=== PATIENT | female | born 1970 | race African-American/Black ===

== ENCOUNTER 2018-11-30 20:47 | Emergency (ER) | payer OTHER ==
[~2018-11-30] VITALS: Ht 162.6 cm; Wt 70.3 kg
[2018-11-30 20:53] VITALS: BP 106/64
--- NOTE | 2018-11-30 20:53 | NUR ---
TO BED # 6 AMBULATORY, REPORT GIVEN TO CASANDRA SIERRA
--- NOTE | 2018-11-30 21:00 | NUR ---
PATIENT PRESENTS ER WITH PAIN TO THE LEFT EAR X 2 DAYS. PT STATED SHE HAS SOME HEARING LOSS. AND FEELS PRESSURE. PATIENT STATES PAIN OF 4/10 AT THIS TIME; VSS; PATIENT POSITIONED FOR COMFORT; HOB ELEVATED; BEDRAILS UP X2; BED DOWN. ER MD MADE AWARE OF PT STATUS.
[2018-11-30 22:04] VITALS: BP 106/64
--- NOTE | 2018-11-30 22:04 | NUR ---
Patient discharged with v/s stable. Written and verbal after care instructions given and explained. Patient alert, oriented and verbalized understanding of instructions. Ambulatory with steady gait. All questions addressed prior to discharge. ID band removed. Patient advised to follow up with PMD. Rx of AUGMENTIN AND DEBROX WAS given. Patient educated on indication of medication including possible reaction and side effects. Opportunity to ask questions provided and answered.
== END 2018-11-30 22:04 | disposition home or self-care (01) ==
LOC: MED 20:47
DX: H61.22 Impacted cerumen, left ear (principal)
CPT/HCPCS: 99283

== ENCOUNTER 2019-12-13 11:38 | Emergency (ER) | payer OTHER ==
[~2019-12-13] VITALS: Ht 162.6 cm; Wt 78.5 kg
--- NOTE | 2019-12-13 11:42 | NUR ---
PT TO ER BED 6
[2019-12-13 11:45] VITALS: BP 120/66
--- NOTE | 2019-12-13 11:51 | NUR ---
c/o possible ring work infection---noted scratch right side of neck and fluid filled vesicle to left unlar notch--- pt belives those to be ring work infection---states , she was sent home from work
[2019-12-13 12:14] VITALS: BP 120/66
--- NOTE | 2019-12-13 12:15 | NUR ---
Patient discharged with v/s stable. Written and verbal after care instructions given and explained. Patient verbalized understanding. Ambulatory with steady gait. All questions addressed prior to discharge. Advised to follow up with PMD.
== END 2019-12-13 12:15 | disposition home or self-care (01) ==
LOC: MED 11:38
DX: R21 Rash and other nonspecific skin eruption (principal); Z98.890 Other specified postprocedural states
CPT/HCPCS: 99281

== ENCOUNTER 2021-10-06 08:14 | Emergency (ER) | payer OTHER ==
[~2021-10-06] VITALS: Ht 162.6 cm; Wt 80.3 kg
[2021-10-06 08:15] VITALS: BP 135/95
--- NOTE | 2021-10-06 08:22 | NUR ---
PT AMBULATED TO BED 9
--- NOTE | 2021-10-06 08:25 | NUR ---
Dr. Carlin is evaluating pt at bedside
--- NOTE | 2021-10-06 08:28 | NUR ---
51 y/o F BIB self from home c/o cough, N/V/D and headache x 1 day. Patient A&Ox4, ambulatory, states waking up to symptoms yesteday. States productive cough and 1 episode of vomiting and diarrhea. Denies sick household members. Denies fever, chills, chest pain, SOB. States Motrin and Sudafed yesterday with temporary relief. Bed locked in lowest position, side rails x 1. PMH: DENIES NKA
--- NOTE | 2021-10-06 08:36 | NUR ---
RAD at bedside
--- NOTE | 2021-10-06 08:48 | NUR ---
Mally jennings walked to lab handed to CPT
[2021-10-06] MEDS ORDERED: ROBAC PO (09:04)
[2021-10-06] MEDS ORDERED: ALBU0.0912 IH (09:04)
--- NOTE | 2021-10-06 09:32 | NUR ---
Patient discharged with v/s stable. Written and verbal after care instructions given and explained. Patient alert, oriented and verbalized understanding of instructions. Ambulatory with steady gait. All questions addressed prior to discharge. ID band removed. Patient advised to follow up with PMD. Rx of Albuterol Sulfate, Codeine Phosphate/Guaifenesi given. Patient educated on indication of medication including possible reaction and side effects. Opportunity to ask questions provided and answered.
== END 2021-10-06 09:32 | disposition home or self-care (01) ==
LOC: MED 08:14
DX: J20.9 Acute bronchitis, unspecified (principal); Z20.822 Contact with and (suspected) exposure to COVID-19; F17.210 Nicotine dependence, cigarettes, uncomplicated; Z79.899 Other long term (current) drug therapy; Z98.890 Other specified postprocedural states
CPT/HCPCS: 71045; 99284

== ENCOUNTER 2023-05-18 06:55 | Emergency (ER) | payer MEDICAID, OTHER ==
[~2023-05-18] VITALS: Ht 162.6 cm; Wt 88.5 kg
[~2023-05-18 06:55] MED LIST: ALBU0.0912 IH; ROBAC PO
[2023-05-18 07:25] VITALS: BP 108/67; PULSE 68; RESP 20; TEMP 97.3; O2SAT 99
--- NOTE | 2023-05-18 07:38 | NUR ---
Patient ambulated to bed [address] Calzada evaluating patient at bedside.
[2023-05-18] MEDS ORDERED: KETOROLAC 60 MG/2 ML VIAL IM ONE (07:45)
--- NOTE | 2023-05-18 07:45 | NUR ---
53 y/o female bib self with c/o right upper shoulder pain that radiates down to right arm and radiates up neck to face. Patient has had this pain for 2 days. Denies any trauma or injury. Patient is noted with swelling to area. No signs of trauma or injury noted. Patient is able to move extremities. Patient has been taking Ibuprofen with relief. Medical History: Denies NKDA
[2023-05-18] MEDS ORDERED: ACET-8905 PO (07:47)
[2023-05-18] MEDS ORDERED: IBUP-2213 PO (07:47)
[2023-05-18 08:19] VITALS: BP 98/59; PULSE 60; RESP 18; TEMP 97.5; O2SAT 97
--- NOTE | 2023-05-18 08:19 | NUR ---
Patient discharged with v/s stable. Written and verbal after care instructions given. Patient alert, oriented and verbalized understanding of instructions. Ambulatory with steady gait. All questions addressed prior to discharge. ID band removed. Patient advised to follow up with PMD. Rx of Hydrocodone-Acetaminophen and Ibuprofen given. Opportunity to ask questions provided and answered.
--- NOTE | 2023-05-18 08:23 | NUR ---
The patient's care was reviewed and supervised by FELIPE PASCUAL RN.
== END 2023-05-18 08:23 | disposition home or self-care (01) ==
LOC: MED 06:55
DX: M54.6 Pain in thoracic spine (principal); F12.90 Cannabis use, unspecified, uncomplicated; Z79.899 Other long term (current) drug therapy; Z98.890 Other specified postprocedural states
CPT/HCPCS: 81002; 81025; 96372; 99283; J1885

== ENCOUNTER 2023-06-27 10:44 | Emergency (ER) | payer MEDICAID ==
[~2023-06-27] VITALS: Ht 162.6 cm; Wt 85.3 kg
[~2023-06-27 10:44] MED LIST changes: +ACET-8905 PO; +IBUP-2213 PO
[2023-06-27 10:49] VITALS: BP 132/76; PULSE 92; RESP 18; TEMP 97.4; O2SAT 97
[2023-06-27] MEDS ORDERED: KETOROLAC 30 MG/ML VIAL IM ONE (11:10)
[2023-06-27] MEDS ORDERED: CYCL-711 PO (11:19)
[2023-06-27] MEDS ORDERED: DICL20GE TP (11:19)
[2023-06-27] MEDS ORDERED: NAPR-54 PO (11:19)
[2023-06-27 11:39] VITALS: BP 125/76; PULSE 72; RESP 16; TEMP 98; O2SAT 99
== END 2023-06-27 11:41 | disposition home or self-care (01) ==
LOC: MED 10:44
DX: S16.1XXA Strain of muscle, fascia and tendon at neck level, initial encounter (principal); Z79.899 Other long term (current) drug therapy; X58.XXXA Exposure to other specified factors, initial encounter; Y93.89 Activity, other specified; Y92.89 Other specified places as the place of occurrence of the external cause; Y99.8 Other external cause status
CPT/HCPCS: 96372; 99283; J1885